=== PATIENT | female | born 1945 | race Caucasian/White ===

== ENCOUNTER 2019-02-04 06:06 | Day surgery (SDC) | payer MEDICARE ==
[2019-02-04 07:36] LABS: Basophils # (Auto) 0.1 K/mm3 (0.0-0.1); Eosinophils % (Auto) 0.4 % (0.0-4.3); Hematocrit 41.6 % (30.3-42.9); Hemoglobin 13.9 gm/dl (10.1-14.3); Lymphocytes # (Auto) 1.4 K/mm3 (1.2-5.4); Lymphocytes % (Auto) 24.1 % (13.4-35.0); Mean Corpuscular HGB Conc 34 % (30-34); Mean Corpuscular Volume 95 fl (79-97); Monocytes # (Auto) 0.5 K/mm3 (0.0-0.8); Monocytes % (Auto) 8.8 % (0.0-7.3); Platelet Count 137 K/mm3 (140-440); Red Blood Count 4.39 M/mm3 (3.65-5.03)
[2019-02-04 07:44] LABS: INR 1.13 (0.87-1.13)
[2019-02-04 07:53] LABS: BUN/Creatinine Ratio 20; Blood Urea Nitrogen 12 mg/dL (7-17); Calcium 9.4 mg/dL (8.4-10.2); Hemolysis Index 2
[2019-02-04] MEDS: SODIUM CHLORIDE 0.9% 500 ML 500 ML IV SCH ×2 (08:34→10:10)
[2019-02-04] MEDS ORDERED: fentaNYL 100 MCG/2 ML INJ ONE (09:58)
[2019-02-04] MEDS ORDERED: MIDAZOLAM 2 MG/2 ML INJ ONE (09:58)
[2019-02-04] MEDS ORDERED: HEPARIN/NS 5000 UNIT/500ML 1,000 ML IR ONE (09:59)
[2019-02-04] MEDS ORDERED: LIDOCAINE (2%) 20 MG/1 ML VIAL 20 ML MDV INFILTRATI ONE (09:59)
[2019-02-04] MEDS ORDERED: VERAPAMIL 5 MG/2 ML INJ ONE (09:59)
[2019-02-04] MEDS ORDERED: NITROGLYCERIN SYRINGE 3 ML ONE (09:59)
[2019-02-04] MEDS ORDERED: HEPARIN 10,000 UNITS/10 ML VIAL ONE (09:59)
[2019-02-04] MEDS ORDERED: METOPROLOL TARTRATE 5 MG/5 ML INJ IV ONE (10:33)
--- NOTE | 2019-02-04 10:53 | Short Stay Summary ---
Short Stay Documentation Date of service: 02/04/19 Narrative H&P: 73-year-old female with hypertension diabetes cholesterol obesity Hungarian- speaking as chest pain with abnormal stress test patient has an adverse reaction to aspirin causes upset stomach. History taken by the daughter. - History Past Medical History: diabetes, hypertension, hyperlipidemia Past Surgical History: no No surgical history Social history: no no significant social history - Allergies and Medications Current Medications: Allergies aspirin Adverse Reaction (Verified 02/04/19 06:53) Nausea Active Medications Sodium Chloride (Nacl 0.9% 500 Ml) 500 mls @ 50 mls/hr IV DIRECT BERNARDINO Stop: 02/04/19 16:59 Last Admin: 02/04/19 08:34 Dose: 50 mls/hr Documented by: - Physical exam General appearance: no acute distress HEENT: PERRLA Lungs: Clear to auscultation Breasts: deferred Heart: Regular rate, Normal S1, Normal S2 Gastrointestinal: normal Female Genitourinary: deferred Rectal Exam: deferred Extremities: no ischemia, no No edema - Brief post op/procedure progress note Date of procedure: 02/04/19 Pre-op diagnosis: cp Post-op diagnosis: other (non obstructive cad) Procedure: see report Anesthesia: local Estimated blood loss: none Pathology: none - Disposition Condition at discharge: Good Disposition: DC-01 TO HOME OR SELFCARE - Discharge Diagnoses (1) Diabetes mellitus Status: Acute Qualifiers: Diabetes mellitus type: type 2 Diabetes mellitus fpc insulin use: with fpc use Diabetes mellitus complication status: without complication Qualified Code(s): E11.9 - Type 2 diabetes mellitus without complications; Z79.4 - buttermaker continuous churn (current) use of insulin (2) Hypertension Status: Chronic Qualifiers: Hypertension type: essential hypertension Qualified Code(s): I10 - Essential (primary) hypertension (3) Hyperlipemia, mixed Status: Chronic (4) Abnormal cardiovascular stress test Status: Acute (5) CAD (coronary artery disease) Status: Chronic Qualifiers: Coronary Disease-Associated Artery/Lesion type: [place] artery Associated angina: with stable angina (6) Chest pain Status: Chronic Qualifiers: Chest pain type: unspecified Qualified Code(s): R07.9 - Chest pain, unspecified Short Stay Discharge Plan Activity: advance as tolerated Diet: low fat, low cholesterol, low salt, diabetic Special Instructions: hold Metformin (for 48 hours) Follow up with: AUGUSTINE,E[place], MD [Primary Care Provider] - 7 Days Prescriptions: Metoprolol [Lopressor TAB] 50 mg PO BID #60 tablet
[2019-02-04] MEDS ORDERED: METOPROLOL TARTRATE 50 MG TAB ONE (11:15)
--- NOTE | 2019-02-04 11:49 | Cardiac Catherization Report ---
LEFT HEART CATHETERIZATION CLINICAL INFORMATION: This is a 73-year-old female, daughter is her forward air controller/air officer, has hypertension, diabetes, cholesterol, abnormal stress test, anterior defect with chest pain. Procedure was moderate sedation, start 10:26 a.m., finished at 10:40 a.m., which is 14 minutes of moderate sedation noted. Procedure was done via the right radial artery, sterile technique, local anesthesia, 6-[place] radial sheath inserted. PROCEDURE FINDINGS: Left system engaged with JL3.5 catheter. Left main with following findings: Left main is large and patent, bifurcates into LAD and is a medium caliber vessel proximally mid with mild diffuse luminal irregularities. Distal portion of the LAD becomes a small caliber that is patent with diffuse disease. Diagonal 1 and diagonal 2 are small caliber vessels, patent. Circumflex and AV groove is a large caliber vessel, patent with mild diffuse luminal irregularities. OM1 is a small caliber vessel, patent with diffuse mild irregularities. OM2 is a small caliber vessel that has a proximal 80% lesion of a less than 2.25 mm vessel. OM3 is a small to medium caliber vessel, patent with mild luminal irregularities. LPDA is a small caliber vessel, patent. RCA is engaged, JR4 is a small nondominant vessel, is patent with mild luminal irregularities. UPPER SORBIAN and JACOB views of the LV function shows normal LV function, LVEDP at 19 mmHg, LV is 207, aortic is 207/90. No gradient across the aortic valve on pullback. A 5-[place] catheters all taken over guidewire, 6-[place] radial sheath was discontinued. Radial band applied. No hematoma, no bleeding. SUMMARY: Left main patent, LAD patent with diffuse mild luminal irregularities, small vessel disease. Diagonal 1 and diagonal 2 patent, but small vessel. Circumflex AV groove is dominant and is patent with mild irregularities. OM1 is patent with diffuse mild luminal. OM2 is small caliber vessel, 80% proximal. OM3 is patent with mild luminal irregularities. LPDA is small vessel, patent with mild luminal irregularities. RCA is nondominant, patent with mild luminal irregularities ____ nonobstructive coronary artery disease, small vessel disease with normal LV function, treated aggressively medically. Discussed in detail with the patient and patient's family. JOB# [id number] JANNY/MICHAEL
[2019-02-04 13:34] VITALS: BP 174/77
[2019-02-04] MEDS ORDERED: METOPROLOL TARTRATE 50 MG TAB PO SCH (22:00)
== END 2019-02-04 13:30 | disposition home or self-care (01) ==
LOC: CATHLABREC 06:06
PROVIDERS: ATTEND Internal Medicine
DX: R07.89 Other chest pain (principal); R94.39 Abnormal result of other cardiovascular function study; I25.10 Atherosclerotic heart disease of native coronary artery without angina pectoris; E11.9 Type 2 diabetes mellitus without complications; E78.2 Mixed hyperlipidemia; I10 Essential (primary) hypertension; M19.90 Unspecified osteoarthritis, unspecified site; Z79.82 Long term (current) use of aspirin; Z79.84 Long term (current) use of oral hypoglycemic drugs; Z79.899 Other long term (current) drug therapy; Z98.51 Tubal ligation status; Z98.890 Other specified postprocedural states
CPT/HCPCS: 36415; 80048; 85025; 85610; 85730; 93005; 93010; 93458; 99156; C1894; J1644; J2250; J3010; J7040; Q9967

== ENCOUNTER 2019-04-17 15:39 | Observation (INO) | payer MEDICARE ==
--- NOTE | 2019-04-17 17:39 | XRay Report ---
CHEST 1 VIEW INDICATION: MAIN: Chest Pain; Pt presents with a c/o left sided chest pain that is nonradiating X 2 days. one mon th ago, pt developed chest pain and cathed but no stents were placed.. COMPARISON: None. FINDINGS: Support devices: None. Heart: Moderate cardiomegaly. Lungs/Pleura: No acute air space or interstitial disease. Additional findings: None. IMPRESSION: Moderate cardiomegaly. Signer Name: Kishor Padron MD Signed: 04/17/2019 5:34 PM Workstation Name: [id number]
[2019-04-17] MEDS ORDERED: MORPHINE 4 MG/1 ML INJ IV ONE ×2 (18:25→22:52)
[2019-04-17] MEDS ORDERED: ONDANSETRON 4 MG/2 ML INJ IV ONE (18:25)
[2019-04-17 18:29] LABS: Basophils # (Auto) 0.1 K/mm3 (0.0-0.1); Basophils % (Auto) 0.7 % (0.0-1.8); Eosinophils # (Auto) 0.1 K/mm3 (0.0-0.4); Eosinophils % (Auto) 1.2 % (0.0-4.3); Hematocrit 41.4 % (30.3-42.9); Hemoglobin 14.1 gm/dl (10.1-14.3); Lymphocytes % (Auto) 24.6 % (13.4-35.0); Mean Corpuscular HGB Conc 34 % (30-34); Mean Corpuscular Volume 94 fl (79-97); Monocytes # (Auto) 0.5 K/mm3 (0.0-0.8); Monocytes % (Auto) 6.5 % (0.0-7.3); Platelet Count 137 K/mm3 (140-440); Red Blood Count 4.39 M/mm3 (3.65-5.03); Red Cell Distribution Width 13.7 % (13.2-15.2)
--- NOTE | 2019-04-17 18:34 | Emergency Department Report ---
ED Chest Pain HPI - General Chief Complaint: Chest Pain Stated Complaint: CHEST PAIN Time Seen by Provider: 04/17/19 17:47 Source: family, EMS Mode of arrival: Stretcher Limitations: Language Barrier - History of Present Illness Initial Comments: 73-year-old female presents to the emergency department with a complaint of a 2-day history of some intermittent left-sided nonradiating chest pain. The worst part of the pain is underneath the left breast but it does also affect the upper chest. The pain worsens with respirations. It is a stabbing pain. She has tried some Tylenol for her symptoms without any relief. She denies any fever, nausea, vomiting, back pain or diaphoresis. She has a past medical history of elg-[id number] diabetes, hypertension, GERD. The patient had a heart cath done about 2 months ago that showed nonobstructive coronary artery disease, and did not require any stent placement. They deny having a linotyper. No recent travel or sick contacts at home. Denies any tobacco or illicit drug use. Severity scale (0 -10): 7 - Related Data Home Medications Medication Instructions Recorded Confirmed Last Taken AtorvaSTATin 10 mg PO QHS 02/04/19 04/17/19 02/03/19 Gabapentin [Neurontin] 600 mg PO QPM 02/04/19 04/17/19 02/03/19 metFORMIN [Glucophage] 500 mg PO QDAY 02/04/19 04/17/19 02/03/19 tiZANidine [Zanaflex 4mg TAB] 4 mg PO Q8HR 02/04/19 04/17/19 02/03/19 Previous Rx's Medication Instructions Recorded Last Taken Type Metoprolol [Lopressor TAB] 50 mg PO BID #60 tablet 02/04/19 Unknown Rx Allergies Allergy/AdvReac Type Severity Reaction Status Date / Time aspirin AdvReac Nausea Verified 04/17/19 17:42 Heart Score - HEART Score History: Moderately suspicious EKG: Normal Age: > 65 Risk factors: > 3 risk factors or hx of atherosclerotic disease Troponin: < normal limit HEART Score: 5 - Critical Actions Critical Actions: 4-6 pts:12-16.6% risk of adverse cardiac event. Should be admitted ED Review of Systems ROS: Stated complaint: CHEST PAIN Other details as noted in HPI Comment: All other systems reviewed and negative Constitutional: denies: chills, fever Eyes: denies: eye pain, vision change ENT: denies: ear pain, throat pain Respiratory: denies: cough, wheezing Cardiovascular: chest pain Gastrointestinal: denies: abdominal pain, vomiting Genitourinary: denies: dysuria, discharge Musculoskeletal: denies: back pain, arthralgia Skin: denies: rash, lesions Neurological: denies: headache, weakness ED Past Medical Hx - Past Medical History Previous Medical History?: Yes Hx Hypertension: Yes Hx Diabetes: Yes (II) Hx Arthritis: Yes (hands) Hx Headaches / Migraines: Yes - Surgical History Past Surgical History?: No - Social History Smoking Status: Unknown if ever smoked - Medications Home Medications: Home Medications Medication Instructions Recorded Confirmed Last Taken Type AtorvaSTATin 10 mg PO QHS 02/04/19 04/17/19 02/03/19 History Gabapentin [Neurontin] 600 mg PO QPM 02/04/19 04/17/19 02/03/19 History Metoprolol [Lopressor TAB] 50 mg PO BID #60 tablet 02/04/19 04/17/19 Unknown Rx metFORMIN [Glucophage] 500 mg PO QDAY 02/04/19 04/17/19 02/03/19 History tiZANidine [Zanaflex 4mg TAB] 4 mg PO Q8HR 02/04/19 04/17/19 02/03/19 History ED Physical Exam - General Limitations: Language Barrier - Other Other exam information: GENERAL: The patient is well-developed well-nourished. HENT: Normocephalic. Atraumatic. Patient has moist mucous membranes. EYES: Extraocular motions are intact. NECK: Supple. Trachea is midline. CHEST/LUNGS: Clear to auscultation. There is no respiratory distress noted. There is some reproducible pain to palpation of the chest wall but no crepitus or deformity. HEART/CARDIOVASCULAR: Regular. There is no tachycardia. ABDOMEN: Abdomen is soft, nontender. Patient has normal bowel sounds. There is no abdominal distention. SKIN: Skin is warm and dry. NEURO: The patient is awake, alert, and oriented. The patient is cooperative. The patient has no focal neurologic deficits. Normal speech. MUSCULOSKELETAL: There is no tenderness or deformity. There is no evidence of acute injury. ED Course Vital Signs 04/17/19 04/17/19 04/17/19 17:10 17:16 17:31 Temperature 98.3 F Pulse Rate 70 68 69 Respiratory 16 17 18 Rate Blood Pressure 184/76 184/76 189/75 Blood Pressure [Left] O2 Sat by Pulse 99 99 97 Oximetry 04/17/19 04/17/19 04/17/19 17:33 17:45 18:00 Temperature 98.0 F Pulse Rate 83 66 66 Respiratory 15 23 20 Rate Blood Pressure 186/78 180/70 Blood Pressure 186/78 [Left] O2 Sat by Pulse 99 99 98 Oximetry 04/17/19 04/17/19 04/17/19 18:15 18:30 18:45 Temperature Pulse Rate 59 L 72 96 H Respiratory 14 18 17 Rate Blood Pressure 180/70 193/67 193/67 Blood Pressure [Left] O2 Sat by Pulse 100 98 96 Oximetry 04/17/19 04/17/19 04/17/19 19:00 19:15 19:31 Temperature Pulse Rate 66 69 61 Respiratory 17 17 15 Rate Blood Pressure 186/69 186/69 193/67 Blood Pressure [Left] O2 Sat by Pulse 98 99 99 Oximetry 04/17/19 04/17/19 04/17/19 19:45 20:17 20:31 Temperature Pulse Rate 68 76 78 Respiratory 15 28 H 20 Rate Blood Pressure 193/67 193/67 177/61 Blood Pressure [Left] O2 Sat by Pulse 99 96 96 Oximetry 04/17/19 04/17/19 04/17/19 20:45 21:00 21:05 Temperature 97.8 F Pulse Rate 79 77 65 Respiratory 31 H 19 18 Rate Blood Pressure 177/61 191/80 Blood Pressure 191/80 [Left] O2 Sat by Pulse 98 97 96 Oximetry 04/17/19 04/17/19 04/17/19 21:15 21:31 21:45 Temperature Pulse Rate 72 83 84 Respiratory 17 17 14 Rate Blood Pressure 177/66 177/66 177/66 Blood Pressure [Left] O2 Sat by Pulse 98 99 99 Oximetry 04/17/19 22:00 Temperature Pulse Rate 88 Respiratory 24 Rate Blood Pressure 164/57 Blood Pressure [Left] O2 Sat by Pulse 98 Oximetry BINU score - Binu Score Age > 65: (1) Yes Aspirin use within the Past 7 Days: (0) No 3 or more CAD Risk Factors: (1) Yes 2 or more Angina events in past 24 hrs: (1) Yes Known CAD with more than 50% Stenosis: (0) No Elevated Cardiac Markers: (0) No ST Deviation Greater than 0.5mm: (0) No BINU Score: 3 ED Medical Decision Making - Lab Data Result diagrams: 04/17/19 17:43 04/17/19 17:43 - EKG Data -: EKG Interpreted by Me EKG shows normal: sinus rhythm, axis, intervals, QRS complexes, ST-T waves Rate: normal - EKG Data When compared to previous EKG there are: no significant change Interpretation: unchanged when compared t (02/04/19) - Radiology Data Radiology results: report reviewed, image reviewed interpreted by me: Chest x-ray does not show any acute process. There are no pleural effusions, obvious pneumonia and there is no pneumothorax. CTA chest with contrast INDICATION : CP, elevated dimer. TECHNIQUE: Axial imaging performed through the chest, with contrast bolus timing set to maximize opacification of the pulmonary arteries. 3-plane MIP reformatted images were obtained. All CT scans at this location are performed using CT dose reduction for ALARA by means of automated exposure control. 100 mL of intravenous contrast administered. COMPARISON: None FINDINGS: Bolus: Contrast bolus timing is adequate. PTE: No filling defect is present to suggest PTE. Mediastinum: Normal heart size. There is moderate atherosclerotic disease in the thoracic aorta and the coronary arteries. No pathologic mediastinal adenopathy. Lungs: Lungs are clear. Upper abdomen: Limited imaging of the upper abdomen shows nothing acute. There is an incompletely visualized rim-enhancing versus calcified structure in the left upper renal pole measuring 1.9 cm on image #435 of series #2. Bones: Degenerative changes in the spine with nothing acute. IMPRESSION: 1. Negative for PTE. Clear lungs. 2. Incompletely visualized left upper renal pole finding as above could represent a rim calcified cyst or partially calcified mass. Recommend correlation with any prior imaging and/or follow-up CT abdomen/pelvis with contrast for further evaluation on a nonemergent basis. - Medical Decision Making This patient presents to the emergency department with a 2-day history of some intermittent sharp left-sided chest pains. EKG does not show any signs of ST elevation SC. Chest x-ray has been unremarkable. The labs have been mostly unremarkable including negative troponins x2 thus far, except for a elevated d- dimer level of about 1800. For this reason a CT angiography of the chest was done that did not show any signs of pulmonary embolism or any other acute process. The patient does have some level of reproducible pain to palpation, but the patient has not had any relief from the pain medication given. She has a moderate heart and BINU score. For these reasons the patient will be admitted to the hospital for further evaluation and treatment and was accepted for admission by the hospitalist, Dr. Leon. - Differential Diagnosis SC, PE, Costochondritis, Pneumonia Critical Care Time: No Critical care attestation.: If time is entered above; I have spent that time in minutes in the direct care of this critically ill patient, excluding procedure time. ED Disposition Clinical Impression: Acute chest pain Hypertension Qualifiers: Hypertension type: essential hypertension Qualified Code(s): I10 - Essential (primary) hypertension CAD (coronary artery disease) Qualifiers: Coronary Disease-Associated Artery/Lesion type: unspecified vessel or lesion type [place] vs. transplanted heart: marshall heart Associated angina: with unspecified angina Qualified Code(s): I25.119 - Atherosclerotic heart disease of [place] coronary artery with unspecified angina pectoris Disposition: 09 OP ADMIT IP TO THIS HOSP Is pt being admited?: Yes Condition: Fair Instructions: Chest Pain (ED), Hypertension (ED) Time of Disposition: 22:47
[2019-04-17 18:40] LABS: INR 1.02 (0.87-1.13); Partial Thromboplastin Time 24.2 Sec. (24.2-36.6)
[2019-04-17 18:51] LABS: BUN/Creatinine Ratio 16; Blood Urea Nitrogen 11 mg/dL (7-17); Calcium 9.7 mg/dL (8.4-10.2); Hemolysis Index 14
[2019-04-17] MEDS ORDERED: KETOROLAC 30 MG/1 ML INJ IV ONE (20:26)
[2019-04-17] MEDS ORDERED: hydrALAZINE 20 MG/1 ML INJ IV ONE (20:26)
--- NOTE | 2019-04-17 20:52 | Cat Scan Report ---
CTA chest with contrast INDICATION : CP, elevated dimer. TECHNIQUE: Axial imaging performed through the chest, with contrast bolus timing set to maximize opa cification of the pulmonary arteries. 3-plane MIP reformatted images were obtained. All CT scans at this location are performed using CT dose reduction for ALARA by means of automated exposure control. 100 mL of intravenous contrast administered. COMPARISON: None FINDINGS: Bolus: Contrast bolus timing is adequate. PTE: No filling defect is present to suggest PTE. Mediastinum: Normal heart size. There is moderate atherosclerotic disease in the thoracic aorta and the coronary arteries. No pathologic mediastinal adenopathy. Lungs: Lungs are clear. Upper abdomen: Limited imaging of the upper abdomen shows nothing acute. There is an incompletely v isualized rim-enhancing versus calcified structure in the left upper renal pole measuring 1.9 cm on i mage #435 of series #2. Bones: Degenerative changes in the spine with nothing acute. IMPRESSION: 1. Negative for PTE. Clear lungs. 2. Incompletely visualized left upper renal pole finding as above could represent a rim calcified cys t or partially calcified mass. Recommend correlation with any prior imaging and/or follow-up CT abdom en/pelvis with contrast for further evaluation on a nonemergent basis. Signer Name: Klaus Lynch MD Signed: 04/17/2019 8:47 PM Workstation Name: [id number]
[2019-04-17] MEDS ORDERED: METOPROLOL TARTRATE 5 MG/5 ML INJ IV ONE (22:52)
--- NOTE | 2019-04-17 22:52 | History and Physical Report ---
History of Present Illness Date of examination: 04/17/19 Date of admission: 04/17/19 Chief complaint: Chest pain History of present illness: Patient is a 73-year-old female with hypertension, GERD, diabetes, arthritis and migraines that presents to ER with complaints of chest pain. Patient describes her pain as a sharp, stabbing, midsternal that radiates to left shoulder and left ribcage. Patient states her pain is unaccompanied by dizziness nausea or vomiting but worsening symptoms today when the pain increased and unrelieved by Tylenol at home. Patient recently had a heart cath 01/2019 after persistent chest pain whilst trying to get clearance for her cataract surgery. Patient states this pain is different from previous as it has radiation. She denies fever, chills nausea, vomiting, or recent ill contacts. Past History Past Medical History: other (As noted in HPI) Past Surgical History: No surgical history Social history: lives with family Family history: CAD, diabetes, hypertension Medications and Allergies Allergies Allergy/AdvReac Type Severity Reaction Status Date / Time aspirin AdvReac Nausea Verified 04/17/19 17:42 Home Medications Medication Instructions Recorded Confirmed Last Taken Type AtorvaSTATin 10 mg PO QHS 02/04/19 04/17/19 02/03/19 History Gabapentin [Neurontin] 600 mg PO QPM 02/04/19 04/17/19 02/03/19 History Metoprolol [Lopressor TAB] 50 mg PO BID #60 tablet 02/04/19 04/17/19 Unknown Rx metFORMIN [Glucophage] 500 mg PO QDAY 02/04/19 04/17/19 02/03/19 History tiZANidine [Zanaflex 4mg TAB] 4 mg PO Q8HR 02/04/19 04/17/19 02/03/19 History Review of Systems All systems: negative Exam - Physical Exam Narrative exam: - Physical Exam Narrative exam: General appearance: Present: No distress noted - EENT Eyes: Present: PERRL ENT: hearing intact, clear oral mucosa - Neck Neck: Present: supple, normal ROM - Respiratory Respiratory effort: normal Respiratory: bilateral: Clear to auscultation - Cardiovascular Heart Sounds: Present: S1 & S2. Absent: rub, click - Extremities Extremities: pulses symmetrical, No edema Peripheral Pulses: within normal limits - Abdominal General gastrointestinal: Present: , non-distended, normal bowel sounds genitourinary: Present: normal - Integumentary Integumentary: Present: clear, warm, dry - Musculoskeletal Musculoskeletal: gait normal, strength equal bilaterally - Psychiatric Psychiatric: appropriate mood/affect, intact judgment & insight - Neurologic Neurologic: CNII-XII intact, moves all extremities - Constitutional Vitals: Temp Pulse Resp BP Pulse Ox 97.8 F 88 24 164/57 98 04/17/19 21:05 04/17/19 22:00 04/17/19 22:00 04/17/19 22:00 04/17/19 22:00 Results - Labs CBC & Chem 7: 04/17/19 17:43 04/17/19 17:43 Labs: Laboratory Last Values WBC 8.1 K/mm3 (4.5-11.0) 04/17/19 17:43 RBC 4.39 M/mm3 (3.65-5.03) 04/17/19 17:43 Hgb 14.1 gm/dl (10.1-14.3) 04/17/19 17:43 Hct 41.4 % (30.3-42.9) 04/17/19 17:43 MCV 94 fl (79-97) 04/17/19 17:43 MCH 32 pg (28-32) 04/17/19 17:43 MCHC 34 % (30-34) 04/17/19 17:43 RDW 13.7 % (13.2-15.2) 04/17/19 17:43 Plt Count 137 K/mm3 (140-440) L 04/17/19 17:43 Lymph % (Auto) 24.6 % (13.4-35.0) 04/17/19 17:43 [place] % (Auto) 6.5 % (0.0-7.3) 04/17/19 17:43 Eos % (Auto) 1.2 % (0.0-4.3) 04/17/19 17:43 Baso % (Auto) 0.7 % (0.0-1.8) 04/17/19 17:43 Lymph # 2.0 K/mm3 (1.2-5.4) 04/17/19 17:43 [place] # 0.5 K/mm3 (0.0-0.8) 04/17/19 17:43 Eos # 0.1 K/mm3 (0.0-0.4) 04/17/19 17:43 Baso # 0.1 K/mm3 (0.0-0.1) 04/17/19 17:43 Seg Neutrophils % 67.0 % (40.0-70.0) 04/17/19 17:43 Seg Neutrophils # 5.4 K/mm3 (1.8-7.7) 04/17/19 17:43 PT 13.5 Sec. (12.2-14.9) 04/17/19 17:43 INR 1.02 (0.87-1.13) 04/17/19 17:43 APTT 24.2 Sec. (24.2-36.6) 04/17/19 17:43 D-Dimer 1695.15 ng/mlDDU (0-234) H 04/17/19 17:43 Sodium 144 mmol/L (137-145) 04/17/19 17:43 Potassium 4.2 mmol/L (3.6-5.0) 04/17/19 17:43 Chloride 105.7 mmol/L (98-107) 04/17/19 17:43 Carbon Dioxide 23 mmol/L (22-30) 04/17/19 17:43 Anion Gap 20 mmol/L 04/17/19 17:43 BUN 11 mg/dL (7-17) 04/17/19 17:43 Creatinine 0.7 mg/dL (0.7-1.2) 04/17/19 17:43 Estimated GFR > 60 ml/min 04/17/19 17:43 BUN/Creatinine Ratio 16 % 04/17/19 17:43 Glucose 81 mg/dL (65-100) 04/17/19 17:43 Calcium 9.7 mg/dL (8.4-10.2) 04/17/19 17:43 Troponin T < 0.010 ng/mL (0.00-0.029) 04/17/19 20:11 - Imaging and Cardiology EKG: report reviewed ( sinus rhythm) Chest x-ray: report reviewed CT scan - chest: report reviewed Imaging and Cardiology: CTA chest with contrast INDICATION : CP, elevated dimer. TECHNIQUE: Axial imaging performed through the chest, with contrast bolus timing set to maximize opacification of the pulmonary arteries. 3-plane MIP reformatted images were obtained. All CT scans at this location are performed using CT dose reduction for ALARA by means of automated exposure control. 100 mL of intravenous contrast administered. COMPARISON: None FINDINGS: Bolus: Contrast bolus timing is adequate. PTE: No filling defect is present to suggest PTE. Mediastinum: Normal heart size. There is moderate atherosclerotic disease in the thoracic aorta and the coronary arteries. No pathologic mediastinal adenopathy. Lungs: Lungs are clear. Upper abdomen: Limited imaging of the upper abdomen shows nothing acute. There is an incompletely visualized rim-enhancing versus calcified structure in the left upper renal pole measuring 1.9 cm on image #435 of series #2. Bones: Degenerative changes in the spine with nothing acute. IMPRESSION: 1. Negative for PTE. Clear lungs. 2. Incompletely visualized left upper renal pole finding as above could represent a rim calcified cyst or partially calcified mass. Recommend correlation with any prior imaging and/or follow-up CT abdomen/pelvis with contrast for further evaluation on a nonemerge nt basis. CHEST 1 VIEW INDICATION: MAIN: Chest Pain; Pt presents with a c/o left sided chest pain that is nonradiating X 2 days. one month ago, pt developed chest pain and cathed but no stents were placed.. COMPARISON: None. FINDINGS: Support devices: None. Heart: Moderate cardiomegaly. Lungs/Pleura: No acute air space or interstitial disease. Additional findings: None. IMPRESSION: Moderate cardiomegaly. Assessment and Plan Assessment and plan: Atypical chest pain, need to rule out ACS - - will admit to telemetry bed - monitor with serial CE and EKG - Aspirin allergy, placed on statin - as needed SL NTG and iv morphine for pain - Monitor BP, -Cardiology consult, patient had heart cath 02/04/2019 Hypertension -Home meds once reconciled -Monitor BP q shift DM -POC BG monitoring -SSI coverage prn DVT prophylaxis -SCDs bilateral extremities Advance Directives: No VTE prophylaxis?: Mechanical Plan of care discussed with patient/family: Yes
[2019-04-17] MEDS ORDERED: ONDANSETRON 4 MG/2 ML INJ IV PRN (23:18)
[2019-04-17] MEDS ORDERED: ACETAMINOPHEN 325 MG TAB PO PRN (23:18)
[2019-04-17] MEDS ORDERED: DEXTROSE 50% IN WATER (25GM) 50 ML SYRINGE IV PRN (23:29)
[2019-04-18] MEDS: SODIUM CHLORIDE 0.9% 1000 ML 1,000 ML IV SCH ×2 (00:38→08:00)
[2019-04-18 06:38] LABS: Basophils # (Auto) 0.1 K/mm3 (0.0-0.1); Basophils % (Auto) 0.7 % (0.0-1.8); Eosinophils # (Auto) 0.1 K/mm3 (0.0-0.4); Eosinophils % (Auto) 1.9 % (0.0-4.3); Hematocrit 40.7 % (30.3-42.9); Hemoglobin 13.6 gm/dl (10.1-14.3); Lymphocytes % (Auto) 26.9 % (13.4-35.0); Mean Corpuscular HGB Conc 33 % (30-34); Mean Corpuscular Volume 95 fl (79-97); Monocytes # (Auto) 0.8 K/mm3 (0.0-0.8); Platelet Count 132 K/mm3 (140-440); Red Cell Distribution Width 13.6 % (13.2-15.2)
[2019-04-18 07:03] LABS: BUN/Creatinine Ratio 19; Blood Urea Nitrogen 15 mg/dL (7-17); Calcium 8.9 mg/dL (8.4-10.2); Hemolysis Index 5
[2019-04-18] MEDS: NITROGLYCERIN 0.4 MG TAB SUBL SL PRN ×2 (07:23→07:30)
[2019-04-18] MEDS: INSULIN LISPRO 100 UNIT/ML SUB-Q SCH ×2 (07:30→11:30)
[2019-04-18] MEDS ORDERED: MORPHINE 2 MG/1 ML INJ IV ONE ×2 (08:00)
[2019-04-18] MEDS ORDERED: METOPROLOL TARTRATE 50 MG TAB PO SCH (10:00)
--- NOTE | 2019-04-18 12:22 | Consultation ---
History of Present Illness Consult date: 04/18/19 Requesting physician: GITA RUSSELL Consult reason: chest pain History of present illness: Pt is a 73 y.o. female with a past medical hx of CAD, HTN, HLD, DM, GERD, obesity, and OA. She is followed in our office by Dr. Barton. Pt presented with c/o sharp mid-sternal CP which radiates underneath her left breas t x 3 days. She was cleaning her home at the onset of her CP. Upon exam, she rates her pain as 8/10. Pain is highly reproducible via palpation of chest wall. Pt states that her pain is also worsened by inspiration. Upon evaluation, minimal movement appears to worsen pain. Pt denies SOB, cough, headache, fever/chills, and N/V. Trop negative x 3. ECG shows NSR with no evidence of acute ischemic changes. D-dimer elevated. Chest CTA negative for PE. CXR shows moderate cardiomegaly. Echo done 11/2018 - EF 55-60%; mild septal hypertrophy; trace MR; mild TR. Lexiscan stress MPI done 11/2018 - transient ischemic dilation of the LV with a small, partially reversible anterior defect suggestive of mild ischemia. LHC done 01/2019 - non-obstructive CAD; small vessel disease; normal LV function. Past History Past Medical History: CAD, diabetes, GERD, hypertension, hyperlipidemia, other (obesity, arthritis) Past Surgical History: appendectomy, hysterectomy, total knee replacement (L knee), Other (femoral hernia repair) Social history: lives with family. denies: smoking, alcohol abuse, prescription drug abuse Family history: CAD, diabetes Medications and Allergies Allergies Allergy/AdvReac Type Severity Reaction Status Date / Time aspirin AdvReac Nausea Verified 04/17/19 17:42 Home Medications Medication Instructions Recorded Confirmed Last Taken Type AtorvaSTATin 10 mg PO QHS 02/04/19 04/17/19 02/03/19 History Gabapentin [Neurontin] 600 mg PO QPM 02/04/19 04/17/19 02/03/19 History Metoprolol [Lopressor TAB] 50 mg PO BID #60 tablet 02/04/19 04/17/19 Unknown Rx metFORMIN [Glucophage] 500 mg PO QDAY 02/04/19 04/17/19 02/03/19 History tiZANidine [Zanaflex 4mg TAB] 4 mg PO Q8HR 02/04/19 04/17/19 02/03/19 History Ondansetron [Zofran Odt] 4 mg PO Q6H #20 tab.rapdis 04/18/19 Unknown Rx Pantoprazole [Protonix TAB] 40 mg PO QDAY #30 tablet 04/18/19 Unknown Rx traMADoL [Ultram] 50 mg PO Q6HR PRN #20 tablet 04/18/19 Unknown Rx Active Meds: Active Medications Acetaminophen (Tylenol) 650 mg PO Q4H PRN PRN Reason: Pain MILD(1-3)/Fever >100.5/FRANZ Last Admin: 04/18/19 00:38 Dose: 650 mg Documented by: Atorvastatin Calcium (Lipitor) 40 mg PO QHS [facility] Dextrose (D50w (25gm) Syringe) 50 ml IV Q30MIN PRN; Protocol PRN Reason: Hypoglycemia Gabapentin (Gabapentin) 600 mg PO QPM [facility] Sodium Chloride (Nacl 0.9% 1000 Ml) 1,000 mls @ 125 mls/hr IV DIRECT BERNARDINO Last Admin: 04/18/19 08:00 Dose: 125 mls/hr Documented by: Insulin Human Lispro (Humalog) 0 unit SUB-Q ACHS BERNARDINO; Protocol Last Admin: 04/18/19 07:30 Dose: Not Given Documented by: Metoprolol Tartrate (Metoprolol) 50 mg PO BID [facility] Last Admin: 04/18/19 09:56 Dose: 50 mg Documented by: Nitroglycerin (Nitrostat) 0.4 mg SL .Q5MIN PRN PRN Reason: Chest Pain Last Admin: 04/18/19 07:30 Dose: 0.4 mg Documented by: Ondansetron HCl (Zofran) 4 mg IV Q8H PRN PRN Reason: Nausea And Vomiting Sodium Chloride (Sodium Chloride Flush Syringe 10 Ml) 10 ml IV BID BERNARDINO Sodium Chloride (Sodium Chloride Flush Syringe 10 Ml) 10 ml IV PRN PRN PRN Reason: LINE FLUSH Tizanidine HCl (Zanaflex) 4 mg PO Q8HR [facility] Review of Systems Constitutional: no weight loss, no weight gain, no fever, no chills, no sweats Ears, nose, mouth and throat: no ear pain, no nose pain, no nasal congestion, no mouth pain, no dysphagia Breasts: normal Cardiovascular: chest pain, no orthopnea, no palpitations, no rapid/irregular heart beat, no edema, no syncope, no lightheadedness, no shortness of breath Respiratory: dyspnea on exertion (chronic), no cough, no shortness of breath Gastrointestinal: no abdominal pain, no nausea, no vomiting, no diarrhea, no constipation Genitourinary Female: no flank pain, no dysuria Musculoskeletal: no neck stiffness, no neck pain, no muscle weakness, no muscle cramps Integumentary: no rash, no wounds Neurological: no head injury, no paralysis, no weakness, no parathesias, no numbness, no tingling, no seizures, no syncope, no vertigo, no headaches Endocrine: no cold intolerance, no heat intolerance Hematologic/Lymphatic: no easy bruising, no easy bleeding Allergic/Immunologic: no urticaria Physical Examination Last Vital Signs Temp 97.7 F 04/18/19 08:40 Pulse 90 04/18/19 09:56 Resp 18 04/18/19 08:40 BP 176/72 04/18/19 09:56 Pulse Ox 98 04/18/19 09:27 General appearance: mild distress HEENT: Positive: EOMI, Normocephaly, Mucus Membranes Moist Neck: Positive: neck supple, trachea midline Cardiac: Positive: Reg Rate and Rhythm, S1/S2 Lungs: Positive: clear to auscultation, No Wheeze, Rales, Rhonchi Neuro: Positive: Grossly Intact, Motor Function Intact, Coordination Normal, Sensory Function Intact Abdomen: Positive: Soft, Active Bowel Sounds. Negative: Tender Skin: Negative: Rash, Wound Musculoskeletal: No Pain, Normal Range of Motion Extremities: Present: upper extr. pulses, lower extr. pulses. Absent: edema Results 04/18/19 05:39 04/18/19 05:39 Coagulation 04/17/19 Range/Units 17:43 PT 13.5 (12.2-14.9) Sec. INR 1.02 (0.87-1.13) APTT 24.2 (24.2-36.6) Sec. CBC 04/17/19 04/18/19 Range/Units 17:43 05:39 WBC 8.1 7.5 (4.5-11.0) K/mm3 RBC 4.39 4.30 (3.65-5.03) M/mm3 Hgb 14.1 13.6 (10.1-14.3) gm/dl Hct 41.4 40.7 (30.3-42.9) % Plt Count 137 L 132 L (140-440) K/mm3 Lymph # 2.0 2.0 (1.2-5.4) K/mm3 [place] # 0.5 0.8 (0.0-0.8) K/mm3 Eos # 0.1 0.1 (0.0-0.4) K/mm3 Baso # 0.1 0.1 (0.0-0.1) K/mm3 Comprehensive Metabolic Panel 04/17/19 04/18/19 Range/Units 17:43 05:39 Sodium 144 144 (137-145) mmol/L Potassium 4.2 3.7 (3.6-5.0) mmol/L Chloride 105.7 107.3 H (98-107) mmol/L Carbon Dioxide 23 21 L (22-30) mmol/L BUN 11 15 (7-17) mg/dL Creatinine 0.7 0.8 (0.7-1.2) mg/dL Glucose 81 131 H (65-100) mg/dL Calcium 9.7 8.9 (8.4-10.2) mg/dL - Imaging and Cardiology Echo: report reviewed (11/2018 - EF 55-60%; mild septal hypertrophy; trace MR; mild TR) Cardiac cath: report reviewed (01/2019 - non-obstructive CAD; small vessel disease; normal LV function) EKG: report reviewed, image reviewed - EKG Interpretation EKG: no acute changes EKG interpretations - Telemetry EKG Rhythm: Sinus Tachycardia - EKG Sinus rhythms and dysrhythmias: sinus rhythm Assessment and Plan Pt presents with highly reproducible CP. Suspect MSK etiology. AMI r/o. Echo done 11/2018 - EF 55-60%; mild septal hypertrophy; trace MR; mild TR. LHC done 01/2019 - non-obstructive CAD; small vessel disease; normal LV function. No plans for additional cardiac workup at this time. Continue home cardiac regimen. Consider PRN ibuprofen for analgesia. Currently stable cardiac status. Pt may discharge home from a Cardiology standpoint. Recommend f/u in our office with Dr. Barton within 1-2 weeks ([phone]). The patient has been seen in conjunction with Dr. Rivas, who agrees with the assessment and plan of care. - Patient Problems (1) Costochondral chest pain Current Visit: Yes Status: Suspected (2) CAD (coronary artery disease) Current Visit: Yes Status: Chronic Qualifiers: Coronary Disease-Associated Artery/Lesion type: unspecified vessel or lesion type [place] vs. transplanted heart: [place] heart Associated angina: with unspecified angina Qualified Code(s): I25.119 - Atherosclerotic heart disease of [place] coronary artery with unspecified angina pectoris (3) Hypertension Current Visit: Yes Status: Chronic Qualifiers: Hypertension type: essential hypertension Qualified Code(s): I10 - Essential (primary) hypertension (4) Hyperlipemia, mixed Current Visit: Yes Status: Chronic (5) Diabetes mellitus Current Visit: Yes Status: Chronic Qualifiers: Diabetes mellitus type: type 2 Diabetes mellitus halfway insulin use: with soubrette use Diabetes mellitus complication status: without complication Qualified Code(s): E11.9 - Type 2 diabetes mellitus without complications; Z79.4 - skilled nursing (current) use of insulin (6) GERD (gastroesophageal reflux disease) Current Visit: Yes Status: Chronic (7) Obesity Current Visit: Yes Status: Chronic (8) Osteoarthritis Current Visit: Yes Status: Chronic
[2019-04-18] MEDS ORDERED: ONDANSETRON 4 MG/2 ML INJ IV PRN (12:59)
[2019-04-18] MEDS ORDERED: KETOROLAC 30 MG/1 ML INJ IV SCH (13:00)
--- NOTE | 2019-04-18 13:07 | Discharge Summary ---
Providers - Providers Date of Admission: 04/17/19 22:47 Attending physician: REY BOCANEGRA MD 04/17/19 23:18 Consult to Cardiology [CONS] Routine Consulting Provider: HALIMA BRYAN Reason For Exam: chest pain Primary care physician: CAR REPAIRER Hospitalization Reason for admission: chest pain Condition: Stable Hospital course: Patient is a 73-year-old female with hypertension, GERD, diabetes, arthritis and migraines that presents to ER with complaints of chest pain. Patient describes her pain as a sharp, stabbing, midsternal that radiates to left shoulder and left ribcage. Patient states her pain is unaccompanied by dizziness nausea or vomiting but worsening symptoms today when the pain increased and unrelieved by Tylenol at home. Patient recently had a heart cath 01/2019 after persistent chest pain whilst trying to get clearance for her cataract surgery. Patient states this pain is different from previous as it has radiation. She denies fever, chills nausea, vomiting, or recent ill contacts. Clinically improved Pain is reproducible Discussed with Daughter at the bedside Atypical chest pain- secondary to costochondritis Hypertension GERD DM - Disposition: DC-01 TO HOME OR SELFCARE Time spent for discharge: 35 mins Core Measure Documentation - Palliative Care Palliative Care/ Comfort Measures: Not Applicable - Core Measures Any of the following diagnoses?: none Exam - Constitutional Vitals: Temp Pulse Resp BP Pulse Ox 97.7 F 90 18 176/72 98 04/18/19 08:40 04/18/19 09:56 04/18/19 08:40 04/18/19 09:56 04/18/19 09:27 General appearance: Present: no acute distress - EENT Eyes: Present: EOM intact ENT: clear oral mucosa - Neck Neck: Present: supple, normal ROM - Respiratory Respiratory effort: normal Respiratory: bilateral: CTA - Cardiovascular Rhythm: regular Heart Sounds: Present: S1 & S2. Absent: systolic murmur - Extremities Extremities: no ischemia, pulses intact, pulses symmetrical, No edema, normal temperature, normal color, Full ROM Peripheral Pulses: within normal limits - Abdominal General gastrointestinal: Present: soft, non-tender, non-distended, normal bowel sounds - Integumentary Integumentary: Present: clear, warm, dry - Musculoskeletal Musculoskeletal: strength equal bilaterally, other (Tender to touch) - Psychiatric Psychiatric: appropriate mood/affect, intact judgment & insight, cooperative - Neurologic Neurologic: CNII-XII intact, moves all extremities - Allied Health Allied health notes reviewed: nursing Plan Activity: advance as tolerated, fall precautions Diet: low fat Special Instructions: record daily weights, record daily BP diary Follow up with: PRIMARY CARE, [Primary Care Provider] - 7 Days [facility] PLATT MD [Staff Physician] - 7 Days Prescriptions: Pantoprazole [Protonix TAB] 40 mg PO QDAY #30 tablet traMADoL [Ultram] 50 mg PO Q6HR PRN #20 tablet PRN Reason: Pain Ondansetron [Zofran Odt] 4 mg PO Q6H #20 tab.pavandis
--- NOTE | 2019-04-18 13:47 | Vascular Lab Report ---
DUPLEX DOPPLER LOWER EXTREMITY VEINS, BILATERAL INDICATION: dvt. TECHNIQUE: Duplex doppler imaging was performed through the veins of both lower extremities using ve nous compression and other maneuvers. COMPARISON: No relevant prior imaging study available. FINDINGS: Right Common femoral vein: Negative. Right Superficial femoral vein: Negative. Right Popliteal vein: Negative. Right Calf veins: Negative. Left Common femoral vein: Negative. Left Superficial femoral vein: Negative. Left Popliteal vein: Negative. Left Calf veins: Negative. Additional findings: None.. IMPRESSION: No sonographic evidence for DVT in either lower extremity. Signer Name: Ranjith Cuevas Jr, MD Signed: 04/18/2019 1:43 PM Workstation Name: [id number]
[2019-04-18] MEDS ORDERED: tiZANidine TAB 4 MG TAB PO SCH (14:00)
[2019-04-18 15:25] VITALS: BP 148/86
[2019-04-18] MEDS ORDERED: NON-FORMULARY EACH (Gabapentin [Neurontin] 600 MG) PO SCH (18:00)
[2019-04-18] MEDS ORDERED: GABAPENTIN 300 MG CAP PO SCH (18:00)
== END 2019-04-18 14:30 | disposition home or self-care (01) ==
LOC: ED 15:39 → 4A 22:47
PROVIDERS: ADMIT Internal Medicine Geriatric Medicine; ATTEND Internal Medicine
DX: R07.89 Other chest pain (principal); I10 Essential (primary) hypertension; I25.119 Atherosclerotic heart disease of native coronary artery with unspecified angina pectoris; E11.9 Type 2 diabetes mellitus without complications; K21.9 Gastro-esophageal reflux disease without esophagitis; M19.90 Unspecified osteoarthritis, unspecified site; G43.909 Migraine, unspecified, not intractable, without status migrainosus; Z79.84 Long term (current) use of oral hypoglycemic drugs; Z79.899 Other long term (current) drug therapy; Z88.6 Allergy status to analgesic agent
CPT/HCPCS: 36415; 71045; 71275; 80048; 82962; 84484; 85025; 85379; 85610; 85730; 93005; 93010; 93970; 94760; 96374; 96375; 96376; 99285; G0378; J0360; J1885; J2270; J2405; J7030; Q9967